=== PATIENT | male | born 1995 | race Native Hawaiian/Other Pacific Islander ===

== ENCOUNTER 2017-10-26 06:50 | Emergency (ER) | payer OTHER ==
[~2017-10-26] VITALS: Ht 182.9 cm; Wt 77.1 kg
[2017-10-26 07:01] VITALS: BP 134/77; TEMP 98.1
[2017-10-26 07:26] LABS: PLATELET COUNT 183 K/uL (142-355)
== END 2017-10-26 07:45 | disposition home or self-care (01) ==
LOC: ED 06:50
DX: B35.8 Other dermatophytoses (principal)
CPT/HCPCS: 85027; 99282

== ENCOUNTER 2017-11-26 07:08 | Emergency (ER) | payer OTHER ==
[~2017-11-26] VITALS: Ht 182.9 cm; Wt 77.1 kg
[2017-11-26 07:13] VITALS: BP 125/77; TEMP 97.7
[2017-11-26 08:04] LABS: PLATELET COUNT 180 K/uL (142-355)
[2017-11-26 08:13] LABS: POTASSIUM 3.7 mmol/L (3.6-5.2)
== END 2017-11-26 09:25 | disposition home or self-care (01) ==
LOC: ED 07:08
PROVIDERS: Family Medicine
DX: R11.2 Nausea with vomiting, unspecified (principal); F19.10 Other psychoactive substance abuse, uncomplicated
CPT/HCPCS: 80053; 80307; 81000; 85027; 99283

== ENCOUNTER 2018-11-09 10:59 | Emergency (ER) | payer OTHER ==
[~2018-11-09] VITALS: Ht 182.9 cm; Wt 77.1 kg
[2018-11-09 11:42] VITALS: BP 119/73; TEMP 98.1
== END 2018-11-09 12:12 | disposition home or self-care (01) ==
LOC: ED 10:59
DX: K08.89 Other specified disorders of teeth and supporting structures (principal); K02.9 Dental caries, unspecified
CPT/HCPCS: 96372; 99283; J0696

== ENCOUNTER 2018-12-10 18:16 | Emergency (ER) | payer OTHER ==
[~2018-12-10] VITALS: Ht 182.9 cm; Wt 77.1 kg
[2018-12-10 19:55] VITALS: BP 146/99; TEMP 97.8
== END 2018-12-10 19:55 | disposition home or self-care (01) ==
LOC: ED 18:16
DX: K08.89 Other specified disorders of teeth and supporting structures (principal); K04.7 Periapical abscess without sinus; K02.9 Dental caries, unspecified; F17.210 Nicotine dependence, cigarettes, uncomplicated
CPT/HCPCS: 96372; 99283; J1885

== ENCOUNTER 2021-09-28 08:10 | Emergency (ER) | payer OTHER ==
[~2021-09-28] VITALS: Ht 182.9 cm; Wt 77.1 kg
[2021-09-28 08:16] VITALS: TEMP 97.3
[2021-09-28 08:44] LABS: PLATELET COUNT 204 K/uL (142-355)
[2021-09-28 08:54] LABS: POTASSIUM 4.3 mmol/L (3.6-5.2)
[2021-09-28 09:20] VITALS: BP 158/78
== END 2021-09-28 09:25 | disposition home or self-care (01) ==
LOC: ED 08:10
PROVIDERS: Hospitalist
DX: J06.9 Acute upper respiratory infection, unspecified (principal); R09.1 Pleurisy; F17.210 Nicotine dependence, cigarettes, uncomplicated; Z20.822 Contact with and (suspected) exposure to COVID-19
CPT/HCPCS: 80048; 85027; 87502; 87635; 87651; 99283; U0003